=== PATIENT | female | born 1980 | race Caucasian/White ===

== ENCOUNTER 2022-05-10 14:15 | Observation (INO) | payer OTHER ==
[2022-05-10] MEDS ORDERED: ASPIRIN 81 MG CHEWABLE TABLETS PO ONE (14:32)
[2022-05-10] MEDS ORDERED: ASPIRIN 81 MG CHEWABLE TABLETS ONE (14:39)
[2022-05-10 15:27] LABS: INR 0.94 (0.83-1.09); PROTHROMBIN TIME (PATIENT) 10.8 SEC (9.7-13.0)
[2022-05-10 15:29] LABS: ACTIVATED PTT 31.4 SECONDS (25.2-36.5)
[2022-05-10 15:35] LABS: HEMATOCRIT 38.9 % (32.4-45.2); HEMOGLOBIN 13.3 G/dL (10.7-15.3); MCH 28.8 pg (25.7-33.7); MCHC 34.2 g/dl (32.0-36.0); MEAN CELL VOLUME 84.3 fl (80-96); MEAN PLT VOLUME 7.1 fl (7.5-11.1); PLATELET COUNT 342.4 10^3/uL (134-434); RBC 4.62 10^6/uL (3.60-5.2); RDW 14.5 % (11.6-15.6); WHITE BLOOD COUNT 14.9 10^3/uL (4.0-10.8)
[2022-05-10 15:39] LABS: PLATELET ESTIMATE ADEQUATE
[2022-05-10 18:43] VITALS: BMI 31.4
[2022-05-10 18:45] LABS: ALBUMIN 3.4 g/dl (3.4-5.0); MAGNESIUM 1.7 mg/dL (1.8-2.4)
[2022-05-10 18:47] LABS: BLOOD UREA NITROGEN 14.2 mg/dL (7-18)
[2022-05-10 18:48] LABS: CREATININE 0.9 mg/dL (0.55-1.3)
[2022-05-10 18:51] LABS: BILIRUBIN,TOTAL 0.3 mg/dL (0.2-1)
[2022-05-10] MEDS ORDERED: ACETAMINOPHEN 325 MG TABLET (FP) PO PRN (19:40)
[2022-05-10] MEDS ORDERED: ACETAMINOPHEN 1000 MG/100 ML BAG IVPB PRN (19:52)
[2022-05-10 20:02] LABS: MAGNESIUM 1.5 mg/dL (1.8-2.4); PHOSPHOROUS 3.7 mg/dl (2.5-4.9)
[2022-05-10] MEDS ORDERED: MAGNESIUM OXIDE 400 MG TABLET (FP) PO ONE (21:39)
[2022-05-10] MEDS ORDERED: MAGNESIUM SULFATE IN WATER 2 GM/50 ML IVPB IVPB ONE (21:39)
[2022-05-10] MEDS ORDERED: ATORVASTATIN CA 20 MG TABLET (FP) PO SCH (22:00)
[2022-05-10] MEDS: INSULIN SLIDING SCALE (NOVOLOG) 1 VIAL SQ SCH (22:46)
[2022-05-11] MEDS ORDERED: KETOROLAC TROMETHAMINE 15 MG/ML VIAL IVPUSH ONE (01:11)
[2022-05-11] MEDS: INSULIN SLIDING SCALE (NOVOLOG) 1 VIAL SQ SCH ×4 (06:47→21:55)
[2022-05-11] MEDS: LEVOTHYROXINE NA 100 MCG TABLET (FP) PO SCH (06:47)
[2022-05-11 09:06] LABS: CALCIUM 8.2 mg/dl (8.5-10); CREATININE 0.7 mg/dl (0.55-1.3)
[2022-05-11] MEDS: LISINOPRIL 5 MG TABLET PO SCH (09:38)
[2022-05-11] MEDS: ASPIRIN COATED 81 MG TABLET.EC PO SCH (09:38)
[2022-05-11] MEDS: ENOXAPARIN NA (PORCINE) 40 MG/0.4 ML DISP.SYRIN SQ SCH (09:47)
[2022-05-11 11:50] LABS: BASO % 0.3 % (0-2.0); HEMATOCRIT 40.8 % (32.4-45.2); HEMOGLOBIN 13.1 GM/dL (10.7-15.3); LYMPH % 29.2 % (8-40); MCH 27.6 pg (25.7-33.7); MCHC 32.2 g/dl (32.0-36.0); MEAN CELL VOLUME 85.8 fl (80-96); MEAN PLT VOLUME 7.6 fl (7.5-11.1); MONO % 6.2 % (3.8-10.2); NEUT % 63.3 % (42.8-82.8); PLATELET COUNT 361 10^3/uL (134-434); RBC 4.75 M/mm3 (3.60-5.2); RDW 13.7 % (11.6-15.6); WHITE BLOOD COUNT 10.8 K/mm3 (4.0-10.0)
[2022-05-11] MEDS: ACETAMINOPHEN 325 MG TABLET (FP) PO PRN (21:49)
[2022-05-11] MEDS ORDERED: ATORVASTATIN CA 40 MG TABLET (FP) PO SCH (22:00)
[2022-05-12] MEDS: LEVOTHYROXINE NA 100 MCG TABLET (FP) PO SCH (06:05)
[2022-05-12] MEDS: ACETAMINOPHEN 325 MG TABLET (FP) PO PRN (06:06)
[2022-05-12] MEDS: INSULIN SLIDING SCALE (NOVOLOG) 1 VIAL SQ SCH ×3 (06:14→17:45)
[2022-05-12] MEDS: LISINOPRIL 5 MG TABLET PO SCH (15:42)
[2022-05-12] MEDS: ENOXAPARIN NA (PORCINE) 40 MG/0.4 ML DISP.SYRIN SQ SCH (15:42)
[2022-05-12 15:45] VITALS: BP 124/90; PULSE 88; RESP 17; TEMP 98.1
[2022-05-12] MEDS: ASPIRIN COATED 81 MG TABLET.EC PO SCH (17:44)
== END 2022-05-12 19:10 | disposition home or self-care (01) ==
LOC: FER 14:15 → SUPCPDRO 14:15 → FM/S 15:06
PROC: 3E013VG Introduction of Insulin into Subcutaneous Tissue, Percutaneous Approach (ICD-10-PCS; principal; 2022-05-10)
PROC: 3E033NZ Introduction of Analgesics, Hypnotics, Sedatives into Peripheral Vein, Percutaneous Approach (ICD-10-PCS; 2022-05-10)
PROC: 3E0333Z Introduction of Anti-inflammatory into Peripheral Vein, Percutaneous Approach (ICD-10-PCS; 2022-05-10)
PROC: 3E033GC Introduction of Other Therapeutic Substance into Peripheral Vein, Percutaneous Approach (ICD-10-PCS; 2022-05-10)
DX: I44.5 Left posterior fascicular block (principal); R07.9 Chest pain, unspecified; F39 Unspecified mood [affective] disorder; I10 Essential (primary) hypertension; E78.5 Hyperlipidemia, unspecified; E11.9 Type 2 diabetes mellitus without complications; J45.909 Unspecified asthma, uncomplicated; E66.01 Morbid (severe) obesity due to excess calories; Z68.31 Body mass index [BMI] 31.0-31.9, adult; Z86.16 Personal history of COVID-19; Z29.8 Encounter for other specified prophylactic measures; Z82.49 Family history of ischemic heart disease and other diseases of the circulatory system
CPT/HCPCS: 0241U-QW; 36415; 71045-TC-FY; 78452-TC; 80048; 80053; 80061; 81025; 82962; 83036; 83735; 84100; 84436; 84443; 84484; 85025; 85610; 85730; 93005; 93017; 93306-TC; 96365; 96372; 96375; 99285-25; A9502; G0378